=== PATIENT | female | born 1955 | race Caucasian/White ===

== ENCOUNTER → 2022-01-06 | Outpatient (CLI) | payer OTHER ==
[~2022-01-06] MED LIST: ESTRACE0.5 MG PO; KLONOPIN1 MG PO; NORCO 5-325 TA1 EACH PO; PERCOCET 7.5-31 EACH PO; STOOL SOFTENER250 MG PO; ZESTRIL20 MG PO; ZOFRAN4 MG PO
== END ==
LOC: KOH-I 12-25 13:30
DX: R91.8 Other nonspecific abnormal finding of lung field (principal)
CPT/HCPCS: 71250